=== PATIENT | male | born 1970 | race African-American/Black ===

== ENCOUNTER 2016-08-11 08:24 | Inpatient (IN) | payer OTHER ==
[2016-08-11 11:03] VITALS: BMI 32.2
--- NOTE | 2016-08-11 12:03 | HP ---
CIWA Score - CIWA Score Nausea/Vomitin-No Nausea/No Vomiting Muscle Tremors: 3 Anxiety: 3 Agitation: 3 Paroxysmal Sweats: 3 Orientation: 0-Oriented Tacttile Disturbances: 2-Mild Itch/Numbness/Burn Auditory Disturbances: 0-None Visual Disturbances: 0-None Headache: 0-None Present CIWA-Ar Total Score: 14 Admission ROS BHS - HPI Chief Complaint: Alcohol intoxication with withdrawal sx. Allergies/Adverse Reactions: Allergies Allergy/AdvReac Type Severity Reaction Status Date / Time No Known Allergies Allergy Verified 08/11/16 10:43 History of Present Illness: 45 y/o man with a long hx. of alcoholism is admitted for detox. Pt. has been in previous detox,he reports significant sobriety. He was here yesterday,however he was not admitted because he kept going to the store to buy beer. Exam Limitations: Intoxication - Ebola screening Have you traveled outside of the country in the last 21 days: No Have you had contact with anyone from an Ebola affected area: No Have you been sick,other than usual withdrawal symptoms: No Do you have a fever: No - Review of Systems Constitutional: Diaphoresis EENT: reports: No Symptoms Reported Respiratory: reports: No Symptoms reported Cardiac: reports: No Symptoms Reported GI: reports: Abdominal cramping : reports: No Symptoms Reported Musculoskeletal: reports: No Symptoms Reported Integumentary: reports: Sweating Neuro: reports: Tingling, Tremors Endocrine: reports: No Symptoms Reported Hematology: reports: No Symptoms Reported Psychiatric: reports: Depressed Other Systems: Reviewed and Negative Patient History - Patient Medical History Hx Anemia: No Hx Asthma: No Hx Chronic Obstructive Pulmonary Disease (COPD): No Hx Cancer: No Hx Cardiac Disorders: No Hx Congestive Heart Failure: No Hx Hypertension: No Hx Hypercholesterolemia: No Hx Pacemaker: No HX Cerebrovascular Accident: No Hx Seizures: No Hx Dementia: No Hx Diabetes: Yes (NIDDM) Hx Gastrointestinal Disorders: Yes (acid reflux, on zantac) Hx Liver Disease: No Hx Genitourinary Disorders: No Hx Sexually Transmitted Disorders: Yes (gonorrhea) Hx Renal Disease (ESRD): No Hx Thyroid Disease: No Hx Human Immunodeficiency Virus (HIV): No Hx Hepatitis C: No Hx Depression: Yes (zoloft) Hx Suicide Attempt: No Hx Bipolar Disorder: No Hx Schizophrenia: No - Patient Surgical History Past Surgical History: Yes Hx Neurologic Surgery: No Hx Cataract Extraction: No Hx Cardiac Surgery: No Hx Lung Surgery: No Hx Breast Surgery: No Hx Breast Biopsy: No Hx Abdominal Surgery: Yes (umbilical hernia repair) Hx Appendectomy: No Hx Cholecystectomy: No Hx Genitourinary Surgery: No Hx Section: No Hx Orthopedic Surgery: Yes (torn ligament, left knee) Anesthesia Reaction: Yes - PPD History Previous Implant?: Yes Documented Results: Negative w/o proof Implanted On Prior [facility] Admission?: No PPD to be Administered?: Yes - Smoking Cessation Smoking history: Current every day smoker Have you smoked in the past 12 months: Yes Aproximately how many cigarettes per day: 10 Hx Chewing Tobacco Use: No Initiated information on smoking cessation: Yes 'Breaking Loose' booklet given: 08/11/16 - Substance & Tx. History Hx Alcohol Use: Yes Hx Substance Use: Yes Substance Use Type: Alcohol, Cocaine Hx Substance Use Treatment: Yes (detox) - Substances Abused Crack Route: Smoking Frequency: 1-2 times per week Amount used: $400 Age of first use: 13 Date of Last Use: 08/08/16 Alcohol-vodka/beer Route: Oral Frequency: Daily Amount used: 2-4 pts./2-6 pks. Age of first use: 29 Date of Last Use: 08/11/16 Family Disease History - Family Disease History Family Disease History: Diabetes: Father (HTN,alcohol), Heart Disease: Father, Mother (HTN,alcohol), Other: Father Admission Physical Exam BHS - Vital Signs Vital Signs: Vital Signs - 24 hr 08/11/16 10:45 Pulse Rate 99 H Respiratory 20 Rate Blood Pressure 135/84 - Physical General Appearance: Yes: Alcohol on Breath HEENTM: Yes: Within Normal Limits Respiratory: Yes: Chest Non-Tender, Lungs Clear, Normal Breath Sounds Neck: Yes: Supple Breast: Yes: Breast Exam Deferred Cardiology: Yes: Regular Rhythm, Regular Rate, S1, S2 Abdominal: Yes: Normal Bowel Sounds, Non Tender, Soft Genitourinary: Yes: Within Normal Limits Back: Yes: Within Normal Limits Musculoskeletal: Yes: Joint swelling (rt. knee), Other (swelling rt. index from old gan bite.) Extremities: Yes: Tremors Neurological: Yes: Fully Oriented, Alert Integumentary: Yes: Diaphoresis Lymphatic: Yes: Within Normal Limits - Diagnostic (1) Alcohol dependence with uncomplicated withdrawal Current Visit: Yes Status: Acute (2) Cannabis dependence, uncomplicated Current Visit: Yes Status: Acute (3) Type II diabetes mellitus Current Visit: Yes Status: Acute Qualifiers: Diabetes mellitus complication status: without complication Diabetes mellitus supervisor intermediates insulin use: without retirement use Qualified Code(s): E11.9 - Type 2 diabetes mellitus without complications (4) Right knee injury Current Visit: Yes Status: Acute Qualifiers: Encounter type: initial encounter Qualified Code(s): S89.91XA - Unspecified injury of right lower leg, initial encounter Cleared for Admission [facility] - Detox or Rehab [facility] Level of Care: Medically Managed Detox Regimen/Protocol: Librium [facility] Breath Alcohol Content Breath Alcohol Content: 0.174 Urine Drug Screen - Results Drug Screen Negative: Yes Urine Drug Screen Results: BEN-Cocaine, BZO-Benzodiazepines
[2016-08-11] MEDS ORDERED: P-EPHED 60MG/TRIPROLIDI 2.5MG TABLET PO PRN (12:22)
[2016-08-11] MEDS ORDERED: guaiFENesin/D-METHORPHAN HB 10 ML UNIT-DOSE CUPS PO PRN (12:22)
[2016-08-11] MEDS ORDERED: chlordiazePOXIDE HCL 25 MG CAPSULE PO PRN (12:22)
[2016-08-11] MEDS ORDERED: ACETAMINOPHEN 325 MG TABLET (FP) PO PRN (12:22)
[2016-08-11] MEDS ORDERED: MAG HYDROX/AL HYDROX/SIMETH 30 ML UNIT-DOSE CUP PO PRN (12:22)
[2016-08-11] MEDS ORDERED: MAGNESIUM CITRATE 300 ML BOTTLE PO PRN (12:22)
[2016-08-11] MEDS ORDERED: MENTHOL/PHENOL 1 EACH UD MM PRN (12:22)
[2016-08-11] MEDS ORDERED: MAGNESIUM HYDROX 2400MG/30ML ORAL SUSPENSION 30 ML CUP PO PRN (12:22)
[2016-08-11] MEDS ORDERED: diphenhydrAMINE HCL 50 MG CAPSULE PO PRN (12:22)
[2016-08-11] MEDS ORDERED: NICOTINE POLACRILEX 2 MG GUM BUC PRN (12:22)
[2016-08-11] MEDS ORDERED: chlordiazePOXIDE HCL 25 MG CAPSULE PO ONE (12:29)
[2016-08-11] MEDS: NICOTINE 21 MG/24 HOURS TOPICAL PATCH TD SCH (12:59)
--- NOTE | 2016-08-11 14:50 | EKG ---
Test Reason : Blood Pressure : / mmHG Vent. Rate : 101 BPM Atrial Rate : 101 BPM P-R Int : 130 ms QRS Dur : 098 ms QT Int : 382 ms P-R-T Axes : 049 034 004 degrees QTc Int : 495 ms SINUS TACHYCARDIA OTHERWISE NORMAL ECG NO PREVIOUS ECGS AVAILABLE Confirmed by YORDAN HARRIS MD ([id number]) on 08/11/2016 2:49:58 PM Referred By: Stephen Engle Confirmed By:YORDAN HARRIS MD
[2016-08-11] MEDS: metFORMIN HCL 500 MG TABLET (FP) PO SCH (16:30)
[2016-08-11 16:44] LABS: URINE APPEARANCE CLEAR; URINE BILIRUBIN NEGATIVE (NEGATIVE); URINE BLOOD NEGATIVE (NEGATIVE); URINE COLOR AMBER; URINE GLUCOSE (UA) 1+ (NEGATIVE); URINE KETONE NEGATIVE (NEGATIVE); URINE LEUK ESTERASE NEGATIVE (NEGATIVE); URINE NITRITE NEGATIVE (NEGATIVE); URINE UROBILINOGEN 4.0 E.U/dl E.U./dl (0.2-1.0)
[2016-08-11] MEDS ORDERED: INSULIN (NOVOLOG) ASPART 100 UNITS/ML 10ML VIAL ONE (17:04)
[2016-08-11 17:09] LABS: URINE PROTEIN 1+ (NEGATIVE)
[2016-08-11] MEDS: chlordiazePOXIDE HCL 25 MG CAPSULE PO SCH ×2 (17:42→22:41)
[2016-08-11] MEDS: INSULIN (NOVOLOG) ASPART 100 UNITS/ML 10ML VIAL SQ SCH (17:43)
[2016-08-11] MEDS: THIAMINE HCL 100 MG TABLET (FP) PO SCH (22:41)
[2016-08-12] MEDS: chlordiazePOXIDE HCL 25 MG CAPSULE PO SCH ×4 (05:53→22:55)
[2016-08-12] MEDS: metFORMIN HCL 500 MG TABLET (FP) PO SCH ×2 (07:16→16:30)
[2016-08-12] MEDS: INSULIN (NOVOLOG) ASPART 100 UNITS/ML 10ML VIAL SQ SCH ×2 (07:16→16:27)
--- NOTE | 2016-08-12 09:12 | CONSULT ---
[facility] Psychiatric Consult - Data Date of interview: 08/12/16 Admission source: [facility] Identifying data: First admission to [facility] for this 45 y/o [facility]-born male seeking detox treatment for alcohol dependence.Patient is single without children,homeless,unemployed and supported on Public Assistance. Substance Abuse History: - Smoking Cessation. Smoking history: Current every day smoker. Have you smoked in the past 12 months: Yes. Aproximately how many cigarettes per day: 10. Hx Chewing Tobacco Use: No. Initiated information on smoking cessation: Yes. 'Breaking Loose' booklet given: 08/11/16. - Substance & Tx. History. Hx Alcohol Use: Yes. Hx Substance Use: Yes. Substance Use Type : Alcohol, Cocaine. Hx Substance Use Treatment: Yes (detox). - Substances Abused. Crack. Route: Smoking. Frequency: 1-2 times per week. Amount used : $400. Age of first use: 13. Date of Last Use: 08/08/16. Alcohol-vodka/ beer. Route: Oral. Frequency: Daily. Amount used: 2-4 pts./2-6 pks. Age of first use: 29. Date of Last Use: 08/11/16. Confirmed by patient. Medical History: GERD,diabetes mellitus and history of gonorrhea.Addtional history of pneumonia and umbilical herniorraphy. Psychiatric History: Patient admits to a past history of psychiatric care in his [facility] although he denies having any mental illness." I don't have a diagnosis." No history of OPD psychiatric care in the [place].Mr Augustus knoxenies history of suicide attempts. Physical/Sexual Abuse/Trauma History: Patient denies. Additional Comment: Urine Drug Screen Results: BEN-Cocaine, BZO- Benzodiazepines.Noted. Mental Status Exam - Mental Status Exam Alert and Oriented to: Time, Place, Person Cognitive Function: Good Patient Appearance: Well Groomed Mood: Withdrawn Affect: Appropriate, Normal Range Patient Behavior: Fatigued, Appropriate, Cooperative Speech Pattern: Clear Voice Loudness: Normal Thought Process: Goal Oriented Thought Disorder: Not Present Hallucinations: Denies Suicidal Ideation: Denies Homicidal Ideation: Denies Insight/Judgement: Fair Sleep: Poorly, Difficulty falling asleep (requesting trazodone) Appetite: Good Muscle strength/Tone: Normal Gait/Station: Normal Psychiatric Findings - Problem List ([place] 1, 2,3) (1) Alcohol dependence with uncomplicated withdrawal Current Visit: Yes Status: Acute (2) Cannabis dependence, uncomplicated Current Visit: Yes Status: Acute (3) Right knee injury Current Visit: Yes Status: Chronic Qualifiers: Encounter type: initial encounter Qualified Code(s): S89.91XA - Unspecified injury of right lower leg, initial encounter (4) Type II diabetes mellitus Current Visit: Yes Status: Chronic Qualifiers: Diabetes mellitus complication status: without complication Diabetes mellitus terminal make up operator insulin use: without terminal make up operator use Qualified Code(s): E11.9 - Type 2 diabetes mellitus without complications (5) Insomnia Current Visit: Yes Status: Acute - Initial Treatment Plan Initial Treatment Plan: Psychoeducation.Detoxification.Trazodone 100 mg po hs.Patient made aware of the risk of priapism.He is advised to stop that drug/ seek immediate medical attention if painful/prolonged erection.He agrees with plan.Observation.
[2016-08-12] MEDS ORDERED: diphenhydrAMINE HCL 50 MG CAPSULE PO PRN (09:25)
[2016-08-12 10:14] LABS: HIV 1 & 2 AB NEGATIVE; HIV 1 AGp24 NEGATIVE
[2016-08-12 10:21] LABS: MCH 27.8 pg (25.7-33.7); MCHC 32.2 g/dl (32.0-35.9); MEAN CELL VOLUME 86.3 fl (80-96); MEAN PLT VOLUME 11.4 fl (7.5-11.1); PLATELET COUNT 111 K/MM3 (134-434); RDW 14.3 % (11.9-15.9); WHITE BLOOD COUNT 5.1 K/mm3 (4.0-10.0)
[2016-08-12] MEDS: PRENATAL VITAMINS W/ FOLIC ACID TABLET (FP) PO SCH (10:38)
[2016-08-12] MEDS: NICOTINE 21 MG/24 HOURS TOPICAL PATCH TD SCH (10:38)
[2016-08-12 10:55] LABS: ALBUMIN 3.8 g/dl (3.4-5.0); ALK PHOS 42 U/L (45-117); ANION GAP 14 (8-16); CALCIUM 8.4 mg/dL (8.5-10.1); CO2 27 mmol/L (21-32); CREATININE 0.7 mg/dL (0.7-1.3); GLUCOSE,RANDOM 206 mg/dL (74-106); SGOT/AST 30 U/L (15-37); SGPT/ALT 32 U/L (12-78); TOT PROT 6.7 g/dl (6.4-8.2)
--- NOTE | 2016-08-12 11:04 | PN ---
[facility] CIWA - CIWA Score Nausea/Vomitin-No Nausea/No Vomiting Muscle Tremors: 4-Moderate,w/Arms Extend Anxiety: 4-Mod. Anxious/Guarded Agitation: 4-Moderately Restless Paroxysmal Sweats: 1-Minimal Palms Moist Orientation: 0-Oriented Tacttile Disturbances: 3-Moderate Itch/Numb/Burn Auditory Disturbances: 0-None Visual Disturbances: 0-None Headache: 0-None Present CIWA-Ar Total Score: 16 S Progress Note (SOAP) Subjective: ANXIETY,SWEATS,IRRITABILITY,CHILLS,INTERMITTENT SLEEP. BENADRYL 50 MG NOT EFFECTIVE. Objective: 08/12/16 11:03 Vital Signs Temperature 97.2 F L 08/12/16 10:24 Pulse Rate 80 08/12/16 10:24 Respiratory Rate 20 08/12/16 10:24 Blood Pressure 113/79 08/12/16 10:24 O2 Sat by Pulse Oximetry (%) Laboratory Last Values WBC 5.1 K/mm3 (4.0-10.0) 08/12/16 06:00 RBC 4.57 M/mm3 (4.00-5.60) 08/12/16 06:00 Hgb 12.7 GM/dL (11.7-16.9) 08/12/16 06:00 Hct 39.4 % (35.4-49) 08/12/16 06:00 MCV 86.3 fl (80-96) 08/12/16 06:00 MCHC 32.2 g/dl (32.0-35.9) 08/12/16 06:00 RDW 14.3 % (11.9-15.9) 08/12/16 06:00 Plt Count 111 K/MM3 (134-434) L 08/12/16 06:00 MPV 11.4 fl (7.5-11.1) H 08/12/16 06:00 Sodium 142 mmol/L (136-145) 08/12/16 06:00 Potassium 3.4 mmol/L (3.5-5.1) L 08/12/16 06:00 Chloride 101 mmol/L (98-107) 08/12/16 06:00 Carbon Dioxide 27 mmol/L (21-32) 08/12/16 06:00 Anion Gap 14 (8-16) 08/12/16 06:00 BUN 7 mg/dL (7-18) 08/12/16 06:00 Creatinine 0.7 mg/dL (0.7-1.3) 08/12/16 06:00 Creat Clearance w eGFR > 60 (>60) 08/12/16 06:00 POC Glucometer 134 UNITS (()) 08/12/16 05:52 Random Glucose 206 mg/dL (74-106) H 08/12/16 06:00 Calcium 8.4 mg/dL (8.5-10.1) L 08/12/16 06:00 Total Bilirubin 1.0 mg/dL (0.2-1.0) 08/12/16 06:00 AST 30 U/L (15-37) 08/12/16 06:00 ALT 32 U/L (12-78) 08/12/16 06:00 Alkaline Phosphatase 42 U/L (45-117) L 08/12/16 06:00 Total Protein 6.7 g/dl (6.4-8.2) 08/12/16 06:00 Albumin 3.8 g/dl (3.4-5.0) 08/12/16 06:00 Urine Color [place] 08/11/16 15:30 Urine Appearance Clear 08/11/16 15:30 Urine pH 5.0 (5.0-8.0) 08/11/16 15:30 Ur Specific [place] 1.023 (1.001-1.035) 08/11/16 15:30 Urine Protein 1+ (NEGATIVE) H 08/11/16 15:30 Urine Glucose (UA) 1+ (NEGATIVE) H 08/11/16 15:30 Urine Ketones Negative (NEGATIVE) 08/11/16 15:30 Urine Blood Negative (NEGATIVE) 08/11/16 15:30 Urine Nitrite Negative (NEGATIVE) 08/11/16 15:30 Urine Bilirubin Negative (NEGATIVE) 08/11/16 15:30 Urine Urobilinogen 4.0 e.u/dl E.U./dl (0.2-1.0) 08/11/16 15:30 Ur Leukocyte Esterase Negative (NEGATIVE) 08/11/16 15:30 HIV 1&2 Antibody Screen Negative 08/11/16 11:20 HIV P24 Antigen Negative 08/11/16 11:20 LABS NOTED Assessment: 08/12/16 11:03 WITHDRAWAL SX Plan: CONTINUE DETOX INCREASE BENADRYL 100 MG PO HS
[2016-08-12 12:08] LABS: SICKLE CELL SCREEN NEGATIVE (NEGATIVE)
[2016-08-12] MEDS: traZODone HCL 100 MG TABLET (FP) PO SCH (22:55)
[2016-08-12] MEDS: THIAMINE HCL 100 MG TABLET (FP) PO SCH (22:55)
[2016-08-13] MEDS: metFORMIN HCL 500 MG TABLET (FP) PO SCH ×2 (06:11→16:30)
[2016-08-13] MEDS: chlordiazePOXIDE HCL 25 MG CAPSULE PO SCH ×2 (06:11→10:42)
[2016-08-13] MEDS: IBUPROFEN 400 MG TABLET (FP) PO PRN ×2 (06:27→19:16)
[2016-08-13] MEDS: INSULIN (NOVOLOG) ASPART 100 UNITS/ML 10ML VIAL SQ SCH ×2 (06:32→16:30)
[2016-08-13] MEDS ORDERED: INSULIN (NOVOLOG) ASPART 100 UNITS/ML 10ML VIAL ONE ×2 (06:36→17:06)
[2016-08-13] MEDS: PRENATAL VITAMINS W/ FOLIC ACID TABLET (FP) PO SCH (10:42)
[2016-08-13] MEDS: NICOTINE 21 MG/24 HOURS TOPICAL PATCH TD SCH (10:42)
--- NOTE | 2016-08-13 11:26 | PN ---
[facility] CIWA - CIWA Score Nausea/Vomitin-No Nausea/No Vomiting Muscle Tremors: 4-Moderate,w/Arms Extend Anxiety: 4-Mod. Anxious/Guarded Agitation: 4-Moderately Restless Paroxysmal Sweats: 1-Minimal Palms Moist Orientation: 0-Oriented Tacttile Disturbances: 3-Moderate Itch/Numb/Burn Auditory Disturbances: 0-None Visual Disturbances: 0-None Headache: 0-None Present CIWA-Ar Total Score: 16 S Progress Note (SOAP) Subjective: C/O INSOMNIA NOT EFFECTIVE WITH BENADRYL. ANXIETY,CHILLS,BODY ACHES. Objective: 08/13/16 11:25 Vital Signs Temperature 96.3 F L 08/13/16 09:23 Pulse Rate 79 08/13/16 09:23 Respiratory Rate 20 08/13/16 09:23 Blood Pressure 130/86 08/13/16 09:23 O2 Sat by Pulse Oximetry (%) Laboratory Last Values WBC 5.1 K/mm3 (4.0-10.0) 08/12/16 06:00 RBC 4.57 M/mm3 (4.00-5.60) 08/12/16 06:00 Hgb 12.7 GM/dL (11.7-16.9) 08/12/16 06:00 Hct 39.4 % (35.4-49) 08/12/16 06:00 MCV 86.3 fl (80-96) 08/12/16 06:00 MCHC 32.2 g/dl (32.0-35.9) 08/12/16 06:00 RDW 14.3 % (11.9-15.9) 08/12/16 06:00 Plt Count 111 K/MM3 (134-434) L 08/12/16 06:00 MPV 11.4 fl (7.5-11.1) H 08/12/16 06:00 Sickle Cell Screen Negative (NEGATIVE) 08/12/16 06:00 Sodium 142 mmol/L (136-145) 08/12/16 06:00 Potassium 3.4 mmol/L (3.5-5.1) L 08/12/16 06:00 Chloride 101 mmol/L (98-107) 08/12/16 06:00 Carbon Dioxide 27 mmol/L (21-32) 08/12/16 06:00 Anion Gap 14 (8-16) 08/12/16 06:00 BUN 7 mg/dL (7-18) 08/12/16 06:00 Creatinine 0.7 mg/dL (0.7-1.3) 08/12/16 06:00 Creat Clearance w eGFR > 60 (>60) 08/12/16 06:00 POC Glucometer 235 UNITS (()) 08/13/16 06:09 Random Glucose 206 mg/dL (74-106) H 08/12/16 06:00 Calcium 8.4 mg/dL (8.5-10.1) L 08/12/16 06:00 Total Bilirubin 1.0 mg/dL (0.2-1.0) 08/12/16 06:00 AST 30 U/L (15-37) 08/12/16 06:00 ALT 32 U/L (12-78) 08/12/16 06:00 Alkaline Phosphatase 42 U/L (45-117) L 08/12/16 06:00 Total Protein 6.7 g/dl (6.4-8.2) 08/12/16 06:00 Albumin 3.8 g/dl (3.4-5.0) 08/12/16 06:00 Urine Color [place] 08/11/16 15:30 Urine Appearance Clear 08/11/16 15:30 Urine pH 5.0 (5.0-8.0) 08/11/16 15:30 Ur Specific [place] 1.023 (1.001-1.035) 08/11/16 15:30 Urine Protein 1+ (NEGATIVE) H 08/11/16 15:30 Urine Glucose (UA) 1+ (NEGATIVE) H 08/11/16 15:30 Urine Ketones Negative (NEGATIVE) 08/11/16 15:30 Urine Blood Negative (NEGATIVE) 08/11/16 15:30 Urine Nitrite Negative (NEGATIVE) 08/11/16 15:30 Urine Bilirubin Negative (NEGATIVE) 08/11/16 15:30 Urine Urobilinogen 4.0 e.u/dl E.U./dl (0.2-1.0) 08/11/16 15:30 Ur Leukocyte Esterase Negative (NEGATIVE) 08/11/16 15:30 RPR Titer Nonreactive (NONREACTIVE) 08/12/16 06:00 HIV 1&2 Antibody Screen Negative 08/11/16 11:20 HIV P24 Antigen Negative 08/11/16 11:20 Assessment: 08/13/16 11:26 WITHDRAWAL SX Plan: CONTINUE DETOX
[2016-08-13] MEDS: chlordiazePOXIDE 5 MG CAPSULE PO SCH ×2 (17:48→22:43)
[2016-08-13] MEDS: THIAMINE HCL 100 MG TABLET (FP) PO SCH (22:43)
[2016-08-13] MEDS: traZODone HCL 100 MG TABLET (FP) PO SCH (22:43)
[2016-08-14] MEDS: chlordiazePOXIDE 5 MG CAPSULE PO SCH ×2 (06:14→11:04)
[2016-08-14] MEDS: IBUPROFEN 400 MG TABLET (FP) PO PRN ×2 (06:15→18:16)
[2016-08-14] MEDS: metFORMIN HCL 500 MG TABLET (FP) PO SCH ×2 (06:15→17:19)
[2016-08-14] MEDS: INSULIN (NOVOLOG) ASPART 100 UNITS/ML 10ML VIAL SQ SCH ×2 (07:04→17:20)
[2016-08-14] MEDS: LOPERAMIDE HCL 2 MG CAPSULE PO PRN ×2 (08:59→15:17)
--- NOTE | 2016-08-14 10:43 | PN ---
BHS Progress Note (SOAP) Subjective: Sweating,interrupted sleep,restless Objective: 08/14/16 10:41 Vital Signs - 8 hr 08/14/16 08/14/16 03:30 06:44 Temperature 96.6 F L Pulse Rate 91 H Respiratory 18 18 Rate Blood Pressure 143/92 Laboratory Tests 08/11/16 08/11/16 08/11/16 11:05 11:20 15:30 WBC RBC Hgb Hct MCV MCHC RDW Plt Count MPV Sickle Cell Screen Sodium Potassium Chloride Carbon Dioxide Anion Gap BUN Creatinine Creat Clearance w eGFR POC Glucometer 304 Random Glucose Calcium Total Bilirubin AST ALT Alkaline Phosphatase Total Protein Albumin Urine Color [place] Urine Appearance Clear Urine pH 5.0 Ur Specific [place] 1.023 Urine Protein 1+ H Urine Glucose (UA) 1+ H Urine Ketones Negative Urine Blood Negative Urine Nitrite Negative Urine Bilirubin Negative Urine Urobilinogen 4.0 e.u/dl Ur Leukocyte Esterase Negative RPR Titer HIV 1&2 Antibody Screen Negative HIV P24 Antigen Negative 08/11/16 08/12/16 08/12/16 16:20 05:52 06:00 WBC 5.1 RBC 4.57 Hgb 12.7 Hct 39.4 MCV 86.3 MCHC 32.2 RDW 14.3 Plt Count 111 L MPV 11.4 H Sickle Cell Screen Negative Sodium Potassium Chloride Carbon Dioxide Anion Gap BUN Creatinine Creat Clearance w eGFR POC Glucometer 183 134 Random Glucose Calcium Total Bilirubin AST ALT Alkaline Phosphatase Total Protein Albumin Urine Color Urine Appearance Urine pH Ur Specific [place] Urine Protein Urine Glucose (UA) Urine Ketones Urine Blood Urine Nitrite Urine Bilirubin Urine Urobilinogen Ur Leukocyte Esterase RPR Titer HIV 1&2 Antibody Screen HIV P24 Antigen 08/12/16 08/12/16 08/12/16 06:00 06:00 16:17 WBC RBC Hgb Hct MCV MCHC RDW Plt Count MPV Sickle Cell Screen Sodium 142 Potassium 3.4 L Chloride 101 Carbon Dioxide 27 Anion Gap 14 BUN 7 Creatinine 0.7 Creat Clearance w eGFR > 60 POC Glucometer 136 Random Glucose 206 H Calcium 8.4 L Total Bilirubin 1.0 AST 30 ALT 32 Alkaline Phosphatase 42 L Total Protein 6.7 Albumin 3.8 Urine Color Urine Appearance Urine pH Ur Specific [place] Urine Protein Urine Glucose (UA) Urine Ketones Urine Blood Urine Nitrite Urine Bilirubin Urine Urobilinogen Ur Leukocyte Esterase RPR Titer Nonreactive HIV 1&2 Antibody Screen HIV P24 Antigen labs noted Assessment: 08/14/16 10:42 Withdrawal sx. Plan: Continue detox
[2016-08-14] MEDS: PRENATAL VITAMINS W/ FOLIC ACID TABLET (FP) PO SCH (10:57)
[2016-08-14] MEDS: NICOTINE 21 MG/24 HOURS TOPICAL PATCH TD SCH (10:57)
[2016-08-14] MEDS: POTASSIUM CHLORIDE TABS 20 MEQ TABLET.ER (FP) PO SCH ×2 (11:04→22:51)
[2016-08-14] MEDS: chlordiazePOXIDE HCL 10 MG CAPSULE PO SCH ×2 (17:22→22:54)
[2016-08-14] MEDS ORDERED: BISMUTH SUBSALICYLATE 262 MG/15 ML BTL PO ONE (21:00)
--- NOTE | 2016-08-14 21:03 | PN ---
BHS Progress Note Note: RECEIVED NURSE INFORMED LOOSE STOOL KAOPECTATE 30 ML X 1
[2016-08-14] MEDS: THIAMINE HCL 100 MG TABLET (FP) PO SCH (22:50)
[2016-08-14] MEDS: traZODone HCL 100 MG TABLET (FP) PO SCH (22:51)
[2016-08-15] MEDS ORDERED: RANITIDINE HCL 150 MG TABLET (FP) PO ONE (00:27)
[2016-08-15] MEDS: INSULIN (NOVOLOG) ASPART 100 UNITS/ML 10ML VIAL SQ SCH (08:19)
[2016-08-15] MEDS: chlordiazePOXIDE HCL 10 MG CAPSULE PO SCH ×2 (08:19→10:50)
[2016-08-15] MEDS: metFORMIN HCL 500 MG TABLET (FP) PO SCH (08:19)
[2016-08-15 09:53] VITALS: BP 109/73; PULSE 91; TEMP 96.3
--- NOTE | 2016-08-15 10:48 | DS ---
[facility] Detox Discharge Summary Admission Date: 08/11/16 Discharge Date: 08/15/16 - History Present History: Alcohol Dependence, Cannabis Dependence Pertinent Past History: Type II DM - Physical Exam Results Vital Signs: Vital Signs Temperature 96.3 F L 08/15/16 09:52 Pulse Rate 91 H 08/15/16 09:52 Respiratory Rate 18 08/15/16 09:52 Blood Pressure 109/73 08/15/16 09:52 O2 Sat by Pulse Oximetry (%) Pertinent Admission Physical Exam Findings: Withdrawal sx. Laboratory Last Values WBC 5.1 K/mm3 (4.0-10.0) 08/12/16 06:00 RBC 4.57 M/mm3 (4.00-5.60) 08/12/16 06:00 Hgb 12.7 GM/dL (11.7-16.9) 08/12/16 06:00 Hct 39.4 % (35.4-49) 08/12/16 06:00 MCV 86.3 fl (80-96) 08/12/16 06:00 MCHC 32.2 g/dl (32.0-35.9) 08/12/16 06:00 RDW 14.3 % (11.9-15.9) 08/12/16 06:00 Plt Count 111 K/MM3 (134-434) L 08/12/16 06:00 MPV 11.4 fl (7.5-11.1) H 08/12/16 06:00 Sickle Cell Screen Negative (NEGATIVE) 08/12/16 06:00 Sodium 142 mmol/L (136-145) 08/12/16 06:00 Potassium 3.4 mmol/L (3.5-5.1) L 08/12/16 06:00 Chloride 101 mmol/L (98-107) 08/12/16 06:00 Carbon Dioxide 27 mmol/L (21-32) 08/12/16 06:00 Anion Gap 14 (8-16) 08/12/16 06:00 BUN 7 mg/dL (7-18) 08/12/16 06:00 Creatinine 0.7 mg/dL (0.7-1.3) 08/12/16 06:00 Creat Clearance w eGFR > 60 (>60) 08/12/16 06:00 POC Glucometer 111 UNITS (()) 08/15/16 06:34 Random Glucose 206 mg/dL (74-106) H 08/12/16 06:00 Calcium 8.4 mg/dL (8.5-10.1) L 08/12/16 06:00 Total Bilirubin 1.0 mg/dL (0.2-1.0) 08/12/16 06:00 AST 30 U/L (15-37) 08/12/16 06:00 ALT 32 U/L (12-78) 08/12/16 06:00 Alkaline Phosphatase 42 U/L (45-117) L 08/12/16 06:00 Total Protein 6.7 g/dl (6.4-8.2) 08/12/16 06:00 Albumin 3.8 g/dl (3.4-5.0) 08/12/16 06:00 Urine Color [place] 08/11/16 15:30 Urine Appearance Clear 08/11/16 15:30 Urine pH 5.0 (5.0-8.0) 08/11/16 15:30 Ur Specific [place] 1.023 (1.001-1.035) 08/11/16 15:30 Urine Protein 1+ (NEGATIVE) H 08/11/16 15:30 Urine Glucose (UA) 1+ (NEGATIVE) H 08/11/16 15:30 Urine Ketones Negative (NEGATIVE) 08/11/16 15:30 Urine Blood Negative (NEGATIVE) 08/11/16 15:30 Urine Nitrite Negative (NEGATIVE) 08/11/16 15:30 Urine Bilirubin Negative (NEGATIVE) 08/11/16 15:30 Urine Urobilinogen 4.0 e.u/dl E.U./dl (0.2-1.0) 08/11/16 15:30 Ur Leukocyte Esterase Negative (NEGATIVE) 08/11/16 15:30 RPR Titer Nonreactive (NONREACTIVE) 08/12/16 06:00 HIV 1&2 Antibody Screen Negative 08/11/16 11:20 HIV P24 Antigen Negative 08/11/16 11:20 labs noted - Treatment Hospital Course: Detox Protocol Followed, Detoxed Safely, Responded well, Discharged Condition Good, Rehab Referral Accepted Patient has Accepted a Rehab Referral to: [facility] - Medication Discharge Medications: Ambulatory Orders Metformin HCl [Glucophage -] 500 mg PO BID 03/21/17 Sertraline HCl [Zoloft -] 50 mg PO DAILY 08/11/16 Trazodone HCl 100 mg PO HS #30 tablet 08/12/16 - Diagnosis (1) Alcohol dependence with uncomplicated withdrawal Current Visit: Yes Status: Acute (2) Cannabis dependence, uncomplicated Current Visit: Yes Status: Acute (3) Type II diabetes mellitus Current Visit: Yes Status: Chronic Qualifiers: Diabetes mellitus complication status: without complication Diabetes mellitus [facility] insulin use: without [facility] use Qualified Code(s): E11.9 - Type 2 diabetes mellitus without complications (4) Right knee injury Current Visit: Yes Status: Chronic Qualifiers: Encounter type: initial encounter Qualified Code(s): S89.91XA - Unspecified injury of right lower leg, initial encounter - AMA Did Patient Leave Against Medical Advice: No
[2016-08-15] MEDS: NICOTINE 21 MG/24 HOURS TOPICAL PATCH TD SCH (10:50)
[2016-08-15] MEDS: PRENATAL VITAMINS W/ FOLIC ACID TABLET (FP) PO SCH (10:50)
[2016-08-15] MEDS: POTASSIUM CHLORIDE TABS 20 MEQ TABLET.ER (FP) PO SCH (10:50)
== END 2016-08-15 14:08 | disposition home or self-care (01) | DRG 775 ==
LOC: YASAS 08:24 → Y3N 12:01
PROVIDERS: ADMIT Internal Medicine; ATTEND Internal Medicine
PROC: HZ2ZZZZ Detoxification Services for Substance Abuse Treatment (ICD-10-PCS; principal; 2016-08-15)
DX: F10.230 Alcohol dependence with withdrawal, uncomplicated (principal); F12.20 Cannabis dependence, uncomplicated; E11.9 Type 2 diabetes mellitus without complications; Z79.84 Long term (current) use of oral hypoglycemic drugs; G47.00 Insomnia, unspecified; S89.91XA Unspecified injury of right lower leg, initial encounter; X58.XXXA Exposure to other specified factors, initial encounter; Y93.89 Activity, other specified
CPT/HCPCS: 36415; 73560-TC-RT; 80053; 81003; 81015; 85027; 85660; 86593; 87389; 93005; 93010